=== PATIENT | male | born 1995 | race Caucasian/White ===

== ENCOUNTER 2021-09-02 10:40 | Emergency (ER) | payer MEDICAID, SELFPAY ==
[~2021-09-02] VITALS: Ht 170.2 cm; Wt 72.7 kg
[2021-09-02 10:43] VITALS: BP 118/68
[2021-09-02] MEDS ORDERED: SODIUM CHLORIDE 0.9% 1,000 ML IV ONE (12:30)
[2021-09-02] MEDS ORDERED: DIPHENOXYLATE/ATROP 2.5-0.025 MG TABLET PO ONE (12:30)
[2021-09-02] MEDS ORDERED: ONDANSETRON HCL 4 MG/2 ML VIAL IVP ONE (12:30)
[2021-09-02 12:57] LABS: BASOPHILS % (AUTO) 0.6 % (0.0-2.0); EOSINOPHILS % (AUTO) 0.8 % (1.0-6.0); HEMATOCRIT 42.4 % (41-53); HEMOGLOBIN 14.1 g/dL (13.5-17.5); LYMPHOCYTES # (AUTO) 1.6 K/uL (1.0-4.8); LYMPHOCYTES % (AUTO) 12.7 % (22.0-44.0); MEAN CORPUSCULAR HEMOGLOBIN 29.5 pg (26.0-34.0); MEAN CORPUSCULAR HGB CONC 33.2 G/dL (31.0-37.0); MEAN CORPUSCULAR VOLUME 89 fL (80-100); MONOCYTES # (AUTO) 0.8 K/uL (0.1-1.0); MONOCYTES % (AUTO) 6.3 % (2.0-9.0); NEUTROPHILS # (AUTO) 10.2 K/uL (1.8-7.7); NEUTROPHILS % (AUTO) 79.6 % (40.0-70.0); PLATELET COUNT (AUTO) 278 K/uL (150-450); RED BLOOD CELL COUNT(AUTO) 4.77 MIL/uL (4.50-5.90); RED CELL DISTRIBUTION WIDTH 14.1 % (11.5-14.5)
[2021-09-02 14:47] LABS: ANION GAP 8 mmol/L (8-16); CALCIUM, TOTAL 8.9 mg/dL (8.8-10.5); CARBON DIOXIDE 28 mmol/L (22-29); CHLORIDE 106 mmol/L (98-107); CREATININE 0.91 mg/dL (0.60-1.30); GLOMERULAR FILTR. RATE CALC > 60 mL/min (>60); GLUCOSE,RANDOM 86 mg/dL (70-110); POTASSIUM 3.7 mmol/L (3.5-5.1); SODIUM SERUM 142 mmol/L (136-145); UREA NITROGEN, BLOOD 11 mg/dL (7-18)
[2021-09-02 14:51] LABS: ALANINE AMINOTRANSFERASE 28 U/L (12-78); ALBUMIN 3.8 g/dL (3.4-5.0); ALKALINE PHOSPHATASE 80 U/L (46-116); ASPARTATE AMINOTRANSFERASE 20 U/L (15-37); BILIRUBIN,TOTAL 0.5 mg/dL (0.1-1.0); TOTAL PROTEIN, SERUM 7.8 g/dL (6.4-8.2)
[2021-09-02 19:41] LABS: COVID AG,FIA SOURCE NASOPHARYNGEAL
[2021-09-02 20:04] LABS: APPEARANCE,URINE CLEAR (CLEAR); BILIRUBIN,URINE NEGATIVE (NEGATIVE); GLUCOSE, URINE (UA) NEGATIVE (NEGATIVE); KETONES,URINE NEGATIVE (NEGATIVE); LEUKOCYTE ESTERASE ,URINE NEGATIVE (NEGATIVE); NITRATE,URINE NEGATIVE (NEGATIVE); OCCULT BLOOD,URINE NEGATIVE (NEGATIVE); PH,URINE 6.5 (5.0-8.0); PROTEIN,URINE NEGATIVE (NEGATIVE); UROBILINOGEN,URINE 0.2 mg/dL (<=1.0)
[2021-09-02 20:10] LABS: AMPHET/METH SCREEN,URINE NEGATIVE (NEGATIVE); BARBITURATE SCREEN, URINE NEGATIVE (NEGATIVE); BENZODIAZEPINES SCREEN,URINE NEGATIVE (NEGATIVE); CANNABINOID SCREEN,URINE NEGATIVE (NEGATIVE); COCAINE SCREEN,URINE NEGATIVE (NEGATIVE); METHADONE SCREEN, URINE NEGATIVE (NEGATIVE); OPIATE SCREEN,URINE NEGATIVE (NEGATIVE)
[2021-09-02 20:12] LABS: PHENCYCLIDINE SCREEN,URINE NEGATIVE (NEGATIVE)
[2021-09-02 20:15] LABS: BACTERIA,URINE None Seen /HPF (None Seen); RBC,URINE 0-2 /HPF (0-2); SQUAMOUS EPITHELIAL CELL,UR Rare /LPF (None Seen); WBC,URINE 0-2 /HPF (0-5)
== END 2021-09-03 00:46 | disposition home or self-care (01) ==
LOC: EMS 10:43
DX: R10.32 Left lower quadrant pain (principal); R11.2 Nausea with vomiting, unspecified; Z20.822 Contact with and (suspected) exposure to COVID-19; Z79.899 Other long term (current) drug therapy
CPT/HCPCS: 36415; 74176; 80053; 80307; 81001; 83690; 85025; 87426; 96361; 96374; 99284; J2405; J7030

== ENCOUNTER 2021-09-04 05:51 | Inpatient (IN) | payer MEDICAID ==
[~2021-09-04] VITALS: Ht 172.7 cm; Wt 82.1 kg
[2021-09-04] MEDS ORDERED: ZOLPIDEM TARTRATE 10 MG TABLET PO PRN (23:00)
[2021-09-04] MEDS ORDERED: HALOPERIDOL 5 MG TABLET PO PRN (23:00)
[2021-09-05] MEDS ORDERED: RISP2TAB45 PO (01:08)
[2021-09-05] MEDS ORDERED: QUET25TA PO (01:08)
[2021-09-05 01:14] VITALS: BP 122/70
[2021-09-05] MEDS ORDERED: INFLUENZA VIRUS VACCINE QVS 2021-22 (6MO+)/PF 60 MCG/0.5 ML SYRINGE IM. ONE (04:45)
[2021-09-05 07:35] LABS: BASOPHILS % (AUTO) 0.7 % (0.0-2.0); EOSINOPHILS % (AUTO) 2.8 % (1.0-6.0); HEMATOCRIT 38.6 % (41-53); HEMOGLOBIN 12.9 g/dL (13.5-17.5); LYMPHOCYTES # (AUTO) 1.9 K/uL (1.0-4.8); LYMPHOCYTES % (AUTO) 28.9 % (22.0-44.0); MEAN CORPUSCULAR HEMOGLOBIN 29.6 pg (26.0-34.0); MEAN CORPUSCULAR HGB CONC 33.5 G/dL (31.0-37.0); MEAN CORPUSCULAR VOLUME 88 fL (80-100); MONOCYTES # (AUTO) 0.6 K/uL (0.1-1.0); MONOCYTES % (AUTO) 9.3 % (2.0-9.0); NEUTROPHILS # (AUTO) 3.8 K/uL (1.8-7.7); NEUTROPHILS % (AUTO) 58.3 % (40.0-70.0); PLATELET COUNT (AUTO) 237 K/uL (150-450); RED BLOOD CELL COUNT(AUTO) 4.37 MIL/uL (4.50-5.90); RED CELL DISTRIBUTION WIDTH 13.4 % (11.5-14.5)
[2021-09-05 08:06] LABS: ALANINE AMINOTRANSFERASE 24 U/L (12-78); ALKALINE PHOSPHATASE 67 U/L (46-116); ANION GAP 4 mmol/L (8-16); ASPARTATE AMINOTRANSFERASE 16 U/L (15-37); BILIRUBIN,TOTAL 0.6 mg/dL (0.1-1.0); CALCIUM, TOTAL 8.5 mg/dL (8.8-10.5); CARBON DIOXIDE 28 mmol/L (22-29); CHLORIDE 106 mmol/L (98-107); CHOL/HDL RATIO 2.4 (4.2-7.3); CHOLESTEROL 156 mg/dL (131-200); CREATININE 0.93 mg/dL (0.60-1.30); FREE T4 (FREE THYROXINE) 0.97 ng/dL (0.76-1.46); GLOMERULAR FILTR. RATE CALC > 60 mL/min (>60); GLUCOSE,RANDOM 82 mg/dL (70-110); HDL CHOLESTEROL 65 mg/dL (40-60); LDL CHOL (CALC.) 81 mg/dL (0-130); POTASSIUM 4.2 mmol/L (3.5-5.1); SODIUM SERUM 138 mmol/L (136-145); THYROID STIMULATING HORMONE 1.16 uIU/mL (0.36-3.74); TOTAL PROTEIN, SERUM 6.6 g/dL (6.4-8.2); TRIGLYCERIDES 50 mg/dL (15-150); UREA NITROGEN, BLOOD 14 mg/dL (7-18)
[2021-09-05] MEDS: BACITRACIN 28 GM OINTMENT TP SCH (08:40)
[2021-09-05 08:56] VITALS: BP 118/72
[2021-09-05] MEDS ORDERED: CloNIDine HCL 0.1 MG TABLET PO PRN (15:15)
[2021-09-05] MEDS ORDERED: ONDANSETRON HCL 4 MG TABLET PO PRN (15:15)
[2021-09-05] MEDS ORDERED: IBUPROFEN 400 MG TABLET PO PRN (15:15)
[2021-09-05] MEDS ORDERED: NICOTINE 14 MG/24 HOUR PATCH TD PRN (15:15)
[2021-09-05] MEDS ORDERED: LOPERAMIDE HCL 2 MG CAPSULE PO PRN (15:15)
[2021-09-05] MEDS ORDERED: DOCUSATE SODIUM 100 MG CAPSULE PO PRN (15:15)
[2021-09-05] MEDS ORDERED: GuaiFENesin/D-METHORPHAN [SUGAR-FREE] 200-20MG/10 ML SYRUP UDCUP PO PRN (15:15)
[2021-09-05] MEDS ORDERED: MAGNESIUM HYDROXIDE SUSPENSION 30 ML UDCUP PO PRN (15:15)
[2021-09-05] MEDS ORDERED: ACETAMINOPHEN 325 MG TABLET PO PRN (15:15)
[2021-09-05] MEDS ORDERED: PETROLATUM,WHITE 28 GM JELLY TP PRN (15:15)
[2021-09-05] MEDS ORDERED: ALBUTEROL SULFATE HFA 90 MCG/PUFF 8 GM INHALER IH PRN (15:15)
[2021-09-05 16:28] VITALS: BP 100/62
[2021-09-05] MEDS: RisperiDONE 2 MG TABLET PO SCH (20:35)
[2021-09-05] MEDS: QUEtiapine FUMARATE 100 MG TABLET PO SCH (20:35)
[2021-09-06 06:58] VITALS: BP 105/68
[2021-09-06 09:21] VITALS: BP 118/71
[2021-09-06 16:14] VITALS: BP 113/70
[2021-09-06] MEDS: QUEtiapine FUMARATE 100 MG TABLET PO SCH (20:39)
[2021-09-06] MEDS: RisperiDONE 2 MG TABLET PO SCH (20:39)
[2021-09-07 06:20] VITALS: BP 102/66
[2021-09-07 08:20] VITALS: BP 107/66
[2021-09-07] MEDS: BACITRACIN 28 GM OINTMENT TP SCH (09:07)
[2021-09-07] MEDS: LORazepam 1 MG TABLET PO PRN (09:14)
[2021-09-07 16:14] VITALS: BP 109/64
[2021-09-07 16:16] LABS: GLUCOMETER DEV NAME(LOC) POC.BV
[2021-09-07] MEDS: RisperiDONE 2 MG TABLET PO SCH (20:41)
[2021-09-08 01:11] VITALS: BP 100/76
[2021-09-08 08:15] VITALS: BP 112/72
[2021-09-08] MEDS: RisperiDONE 2 MG TABLET PO SCH ×2 (08:36→20:30)
[2021-09-08 12:31] LABS: GLUCOMETER DEV NAME(LOC) POC.BV
[2021-09-08 16:23] VITALS: BP 108/67
[2021-09-09 01:42] VITALS: BP 110/77
[2021-09-09 08:27] VITALS: BP 100/57
[2021-09-09] MEDS: RisperiDONE 2 MG TABLET PO SCH ×2 (09:26→20:53)
[2021-09-09] MEDS: BACITRACIN 28 GM OINTMENT TP SCH (09:26)
[2021-09-09 16:10] VITALS: BP 102/63
[2021-09-09] MEDS: LORazepam 1 MG TABLET PO PRN (16:38)
[2021-09-10 04:52] VITALS: BP 108/67
[2021-09-10] MEDS: RisperiDONE 2 MG TABLET PO SCH ×2 (08:17→20:40)
[2021-09-10 08:21] VITALS: BP 120/63
[2021-09-10 16:11] VITALS: BP 105/60
[2021-09-10] MEDS: LORazepam 1 MG TABLET PO PRN (16:53)
[2021-09-11 00:30] VITALS: BP 112/67
[2021-09-11 08:15] VITALS: BP 100/60
[2021-09-11] MEDS: RisperiDONE 2 MG TABLET PO SCH ×2 (08:48→20:35)
[2021-09-11] MEDS: BACITRACIN 28 GM OINTMENT TP SCH (08:49)
[2021-09-11 11:01] LABS: GLUCOMETER DEV NAME(LOC) POC.BV
[2021-09-11 16:13] VITALS: BP 103/61
[2021-09-12 04:51] VITALS: BP 110/68
[2021-09-12 08:00] VITALS: BP 105/62
[2021-09-12] MEDS: RisperiDONE 2 MG TABLET PO SCH (08:36)
[2021-09-12] MEDS: MULTIVITAMINS WITH MINERALS, THERAPEUTIC TABLET PO SCH (08:36)
[2021-09-12 16:07] VITALS: BP 105/62
[2021-09-12] MEDS: RisperiDONE 3 MG TABLET PO SCH (20:14)
[2021-09-13 00:22] VITALS: BP 112/68
[2021-09-13 08:00] VITALS: BP 109/60
[2021-09-13] MEDS: RisperiDONE 3 MG TABLET PO SCH ×2 (08:12→20:02)
[2021-09-13] MEDS: MULTIVITAMINS WITH MINERALS, THERAPEUTIC TABLET PO SCH (08:12)
[2021-09-13] MEDS: BACITRACIN 28 GM OINTMENT TP SCH (08:12)
[2021-09-13 16:06] VITALS: BP 109/60
[2021-09-14 00:21] VITALS: BP 112/68
[2021-09-14] MEDS: MULTIVITAMINS WITH MINERALS, THERAPEUTIC TABLET PO SCH (08:05)
[2021-09-14] MEDS: RisperiDONE 3 MG TABLET PO SCH ×2 (08:05→20:00)
[2021-09-14 08:18] VITALS: BP_SYST 118; BP_SYST 120; BP_DIAS 60; BP_DIAS 68
[2021-09-14 12:41] LABS: GLUCOMETER DEV NAME(LOC) POC.BV
[2021-09-14 17:47] VITALS: BP 110/63
[2021-09-15 00:11] VITALS: BP 116/70
[2021-09-15] MEDS: RisperiDONE 3 MG TABLET PO SCH ×2 (08:01→20:06)
[2021-09-15] MEDS: BACITRACIN 28 GM OINTMENT TP SCH (08:02)
[2021-09-15] MEDS: MULTIVITAMINS WITH MINERALS, THERAPEUTIC TABLET PO SCH (08:02)
[2021-09-15 08:13] VITALS: BP 130/79
[2021-09-15 16:10] VITALS: BP 110/60
[2021-09-16 08:06] VITALS: BP 116/64
[2021-09-16] MEDS: RisperiDONE 3 MG TABLET PO SCH ×2 (08:15→20:24)
[2021-09-16] MEDS: MULTIVITAMINS WITH MINERALS, THERAPEUTIC TABLET PO SCH (08:15)
[2021-09-16 16:02] VITALS: BP 125/72
[2021-09-17 00:52] VITALS: BP 114/64
[2021-09-17 08:09] VITALS: BP 113/61
[2021-09-17] MEDS: BACITRACIN 28 GM OINTMENT TP SCH (08:26)
[2021-09-17] MEDS: MULTIVITAMINS WITH MINERALS, THERAPEUTIC TABLET PO SCH (08:26)
[2021-09-17] MEDS: RisperiDONE 3 MG TABLET PO SCH ×2 (08:26→20:21)
[2021-09-17 16:35] VITALS: BP 115/71
[2021-09-18 00:42] VITALS: BP 111/69
[2021-09-18] MEDS: MAG HYDROX/AL HYDROX/SIMETH ES 30 ML SUSPENSION UDCUP PO PRN ×2 (04:10→22:36)
[2021-09-18 08:13] VITALS: BP 127/80
[2021-09-18] MEDS: RisperiDONE 3 MG TABLET PO SCH ×2 (08:26→20:04)
[2021-09-18] MEDS: MULTIVITAMINS WITH MINERALS, THERAPEUTIC TABLET PO SCH (08:26)
[2021-09-18] MEDS: LORazepam 1 MG TABLET PO PRN (08:26)
[2021-09-18 13:41] LABS: GLUCOMETER DEV NAME(LOC) POC.BV
[2021-09-18 16:04] VITALS: BP 115/70
[2021-09-19 02:19] VITALS: BP 112/76
[2021-09-19] MEDS: RisperiDONE 3 MG TABLET PO SCH ×2 (08:10→20:12)
[2021-09-19] MEDS: MULTIVITAMINS WITH MINERALS, THERAPEUTIC TABLET PO SCH (08:10)
[2021-09-19] MEDS: BACITRACIN 28 GM OINTMENT TP SCH (08:12)
[2021-09-19 08:13] VITALS: BP 123/71
[2021-09-19] MEDS: LORazepam 1 MG TABLET PO PRN (09:07)
[2021-09-19 16:30] VITALS: BP 119/78
[2021-09-19] MEDS: MAG HYDROX/AL HYDROX/SIMETH ES 30 ML SUSPENSION UDCUP PO PRN (20:12)
[2021-09-20 06:25] VITALS: BP 120/77
[2021-09-20] MEDS: RisperiDONE 3 MG TABLET PO SCH (08:03)
[2021-09-20] MEDS: MULTIVITAMINS WITH MINERALS, THERAPEUTIC TABLET PO SCH (08:03)
[2021-09-20 08:30] VITALS: BP 113/61
[2021-09-20] MEDS ORDERED: RISP3TAB63 PO (08:55)
== END 2021-09-20 11:14 | disposition home or self-care (01) | DRG 750 ==
LOC: B3A 23:30
PROVIDERS: ADMIT Psychiatry & Neurology Psychiatry; ATTEND Psychiatry & Neurology Psychiatry
DX: F20.0 Paranoid schizophrenia (principal); B18.2 Chronic viral hepatitis C; D64.9 Anemia, unspecified; Z20.822 Contact with and (suspected) exposure to COVID-19; F10.10 Alcohol abuse, uncomplicated; Z71.41 Alcohol abuse counseling and surveillance of alcoholic
CPT/HCPCS: 80053; 80061; 84439; 84443; 85025